=== PATIENT | female | born 1995 | race Caucasian/White ===

== ENCOUNTER 2018-08-20 00:39 | Emergency (ER) | payer OTHER ==
[2018-08-20 01:19] VITALS: TEMP 97.8; BMI 33.8
--- NOTE | 2018-08-20 02:37 | PDOC ---
History of Present Illness - General Chief Complaint: Pain Stated Complaint: PAIN LEFT INNER THIGH - 23 WKS Time Seen by Provider: 08/20/18 01:32 History Source: Patient Exam Limitations: No Limitations - History of Present Illness Initial Comments: 08/20/18 02:32 Patient is a 23F at 23 weeks here today complaining of pain to her right inner thigh that started three days ago. Patient cannot think of any inciting event or increased physical activity. Patient states that she called her PCP who recommended she go to the ED for a possible blood clot. Patient denies chest pain, shortness of breath, abdominal pain, vaginal bleeding/discharge. Denies fevers, chills, nausea and vomiting. Past History - Suicide/Smoking/Psychosocial Hx Smoking History: Never smoked Have you smoked in the past 12 months: No Information on smoking cessation initiated: No Hx Alcohol Use: No Drug/Substance Use Hx: No Review of Systems - Review of Systems Able to Perform ROS?: Yes Comments:: 08/20/18 02:34 GENERAL/CONSTITUTIONAL: No fever or chills. No weakness. HEAD, EYES, EARS, NOSE AND THROAT: No change in vision. No sore throat. CARDIOVASCULAR: No chest pain or shortness of breath RESPIRATORY: No cough, wheezing, or hemoptysis. GASTROINTESTINAL: No nausea, vomiting, diarrhea or constipation. GENITOURINARY: No dysuria, frequency, or change in urination. MUSCULOSKELETAL: +R inner thigh pain No neck or back pain. SKIN: No rash HEMATOLOGIC/LYMPHATIC: No anemia, easy bleeding, or history of blood clots. ALLERGIC/IMMUNOLOGIC: No hives or skin allergy. *Physical Exam - Vital Signs Last Vital Signs Temp Pulse Resp BP Pulse Ox 97.8 F 100 H 18 122/82 99 08/20/18 01:12 08/20/18 01:12 08/20/18 01:12 08/20/18 01:12 08/20/18 01:12 - Physical Exam Comments: 08/20/18 02:35 GENERAL: Awake, alert, and fully oriented, in no acute distress R LEG: No swelling, mildly tender along inner thigh, neurovascularly intact. HEAD: No signs of trauma, normocephalic, atraumatic EYES: PERRLA, EOMI, sclera anicteric, conjunctiva clear ENT: Auricles normal inspection, hearing grossly normal, nares patent, oropharynx clear without exudates. Moist mucosa NECK: Normal ROM, supple, no lymphadenopathy, JVD, or masses LUNGS: No distress, speaks full sentences, clear to auscultation bilaterally HEART: Regular rate and rhythm, normal S1 and S2, no murmurs, rubs or gallops, peripheral pulses normal and equal bilaterally. ABDOMEN: Gravid, nontender, normoactive bowel sounds. No guarding, no rebound. No masses EXTREMITIES: Normal inspection, Normal range of motion, no edema. No clubbing or cyanosis. NEUROLOGICAL: Cranial nerves II through XII grossly intact. Normal speech, normal gait, no focal sensorimotor deficits SKIN: Warm, Dry, normal turgor, no rashes or lesions noted. Moderate Sedation - Procedure Monitoring Vital Signs: Procedure Monitoring Vital Signs Temperature 97.8 F 08/20/18 01:12 Pulse Rate 100 H 08/20/18 01:12 Respiratory Rate 18 08/20/18 01:12 Blood Pressure 122/82 08/20/18 01:12 O2 Sat by Pulse Oximetry (%) 99 08/20/18 01:12 ED Treatment Course - RADIOLOGY Radiology Studies Ordered: Category Date Time Status DUPLEX VASCUL US-1 LEG [US] Stat Ultrasound 08/20/18 01:43 Taken Medical Decision Making - Medical Decision Making 08/20/18 02:36 Patient is 23F at 23 weeks here today with leg pain. Vitals normal and stable. Leg exam not consistent with DVT, but will rule out. Suspect MSK pain. No vaginal pain, discharge or abdominal pain. DVT US negative. Will discharge home. *DC/Admit/Observation/Transfer Diagnosis at time of Disposition: Leg pain - Discharge Dispostion Disposition: HOME Condition at time of disposition: Good Decision to Admit order: No - Referrals - Patient Instructions Printed Discharge Instructions: DI for Leg Pain Additional Instructions: Please follow up with your primary care physician this week. Please return if you have any new, worsening or concerning symptoms, especially fever, increasing pain and shortness of breath. - Post Discharge Activity
--- NOTE | 2018-08-20 02:44 | PDOC ---
Attending Attestation - Resident Resident Name: Rafael Kingston - ED Attending Attestation I have performed the following: I have examined & evaluated the patient, The case was reviewed & discussed with the resident, I agree w/resident's findings & plan, Exceptions are as noted - HPI HPI: 08/20/18 04:48 23F 23 wk preg with R thigh px for 3 days. Sent by PCP for eval concerned for clot. No other complaints. - Physicial Exam PE: 08/20/18 04:49 Agree with exam as documented by resident - Medical Decision Making 08/20/18 04:49 f/u US no dvt dc, f/u pcp, obgyn
[2018-08-20 04:10] VITALS: BP 107/74; PULSE 95
== END 2018-08-20 04:20 | disposition home or self-care (01) ==
LOC: JER 00:39
DX: O26.892 Other specified pregnancy related conditions, second trimester (principal); Z3A.23 23 weeks gestation of pregnancy; M79.604 Pain in right leg
CPT/HCPCS: 93971-TC; 99282-25

== ENCOUNTER 2018-12-08 14:05 | Inpatient (IN) | payer OTHER | END 2018-12-11 14:00 | disposition home or self-care (01) | LOC: JLDR 14:05 → J3W 19:55 ==

== ENCOUNTER 2019-03-13 20:01 | Emergency (ER) | payer OTHER ==
[2019-03-13 20:08] VITALS: BP 128/84; TEMP 98.2; BMI 33.8
--- NOTE | 2019-03-13 20:27 | PDOC ---
History of Present Illness - General Chief Complaint: Bleeding from Anus Stated Complaint: BLEEDING Time Seen by Provider: 03/13/19 20:27 History Source: Patient Exam Limitations: No Limitations - History of Present Illness Initial Comments: 23 year old female with no PMH presented to ED for rectal bleeding since yesterday, total of three episodes. Pt admitted to [facility] intermittent abdominal cramping pain, no alleviating or aggravating factors. Pt denied recent travel, nausea, vomiting, diarrhea, constipation. Pt reported she noted the blood to be on the stool, lying on top, denied blood mixed in stool. Pt admitted to rectal pain. Surgical history: x2 PCP: none Past History - Past Medical History Allergies/Adverse Reactions: Allergies Allergy/AdvReac Type Severity Reaction Status Date / Time No Known Allergies Allergy Verified 03/13/19 20:03 Home Medications: Ambulatory Orders Iron 1 tab PO DAILY 08/20/18 Pnv No.95/Ferrous Fum/Folic AC [ Vitamin Tablet] 1 tab PO DAILY Ibuprofen 600 mg PO Q6H PRN #30 tablet 12/09/18 Oxycodone HCl/Acetaminophen [Percocet 5-325 mg Tablet -] 1 - 2 tab PO Q6H PRN # 15 tab MDD 4 12/09/18 Anemia: Yes Asthma: No Cancer: No Cardiac Disorders: No COPD: No Diabetes: No HTN: No Seizures: No Thyroid Disease: No - Reproductive History Cervical CA: No Dysfunctional Uterine Bleeding: No Ectopic : No Endometrial CA: No Polycystic Ovaries: No Therapeutic (s) & number: No Tubal Ligation: No - Immunization History Immunization Up to Date: Yes - Suicide/Smoking/Psychosocial Hx Smoking History: Never smoked Have you smoked in the past 12 months: No Number of Cigarettes Smoked Daily: 0 Hx Alcohol Use: Yes Drug/Substance Use Hx: No Substance Use Type: None Hx Substance Use Treatment: No Review of Systems - Review of Systems Able to Perform ROS?: Yes Comments:: General: denied fever, chills, generalized weakness. HEENT: denied sore throat, rhinorrhea, ear pain. Cardiovascular: denied chest pain, palpitations, syncope, diaphoresis. Respiratory: denied shortness of breath, cough, sputum production, hemoptysis. Gastrointestinal: admitted to abdominal pain, rectal pain, rectal bleeding. denied nausea, vomiting, diarrhea, constipation, blood in stool. Genitourinary: denied dysuria, increased urinary frequency, hematuria, urinary incontinence, flank pain. Back: denied back pain. Musculoskeletal: denied joint pain, muscle pain, joint swelling. Neurological: denied headache, dizziness, numbness, tingling, weakness. Integumentary: denied rash, laceration, abrasion. Hematologic/Lymphatic: denied bruising or bleeding. *Physical Exam - Vital Signs Last Vital Signs Temp Pulse Resp BP Pulse Ox 98.2 F 104 H 18 128/84 100 03/13/19 20:04 03/13/19 20:04 03/13/19 20:04 03/13/19 20:04 03/13/19 20:04 - Physical Exam Comments: Constitutional: Well-nourished, Well-developed, appearing stated age. HEENT: head is normocephalic, atraumatic. EOMI. PERRLA. no posterior pharyngeal erythema.no tonsillar swelling or exudates bilaterally. uvula midline. no peritonsillar swelling, tenderness or abscess. no jaw tenderness or misalignment. Neck: supple. Full ROM. Cardiovascular: regular heart rhythm. no murmurs. no pericardial friction rub. Respiratory: clear to auscultation bilaterally. no crackles, rhonchi or wheezing. no stridor. Gastrointestinal: soft, nontender. normal bowel sounds. no rebound, guarding, masses. Extremities: peripheral pulses intact. no lower extremity edema. Neurological: CN 2-12 grossly intact. moves all four extremities. Psych: awake, alert, oriented x3. follows commands. answers questions appropriately. Rectal: no external hemorrhoids. soft stool in rectal vault. pink-tinged stool to glove. ED Treatment Course - LABORATORY CBC & Chemistry Diagram: 03/13/19 20:35 03/13/19 20:35 Medical Decision Making - Medical Decision Making 23 year old female with above PMH presented to ED for rectal bleeding since last night, total of 3 episodes of blood lying on top of stool, associated with intermittent RLQ abdominal pain. Initial Vital Signs Temp Pulse Resp BP Pulse Ox 98.2 F 104 H 18 128/84 100 03/13/19 20:04 03/13/19 20:04 03/13/19 20:04 03/13/19 20:04 03/13/19 20:04 Afebrile. Mild tachycardia. No tachypnea. No hypotension. No hypoxia on room air. Labs ordered: CBC, CMP, lipase, serum , stool for blood Imaging ordered: none Medications ordered: tylenol 975 mg PO once, normal saline 1000 cc once 03/13/19 21:07 CBC WBC 8.4 K/mm3 (4.0-10.0) 03/13/19 20:35 RBC 4.47 M/mm3 (3.60-5.2) 03/13/19 20:35 Hgb 12.3 GM/dL (10.7-15.3) 03/13/19 20:35 Hct 37.5 % (32.4-45.2) D 03/13/19 20:35 MCV 84.0 fl (80-96) 03/13/19 20:35 MCH 27.5 pg (25.7-33.7) D 03/13/19 20:35 MCHC 32.7 g/dl (32.0-36.0) 03/13/19 20:35 RDW 16.6 % (11.6-15.6) H 03/13/19 20:35 Plt Count 293 K/MM3 (134-434) D 03/13/19 20:35 MPV 9.1 fl (7.5-11.1) 03/13/19 20:35 Absolute Neuts (auto) 4.9 K/mm3 (1.5-8.0) 03/13/19 20:35 Neutrophils % 58.6 % (42.8-82.8) 03/13/19 20:35 Lymphocytes % 32.2 % (8-40) 03/13/19 20:35 Monocytes % 4.9 % (3.8-10.2) 03/13/19 20:35 Eosinophils % 3.5 % (0-4.5) 03/13/19 20:35 Basophils % 0.8 % (0-2.0) 03/13/19 20:35 Nucleated RBC % 0 % (0-0) 03/13/19 20:35 No leukocytosis. No anemia. No thrombocytosis. 03/13/19 21:17 Urine Test Results Urine Color Yellow 03/13/19 21:02 Urine Appearance Clear 03/13/19 21:02 Urine pH 6.5 (5.0-8.0) D 03/13/19 21:02 Ur Specific [place] 1.023 (1.010-1.035) 03/13/19 21:02 Urine Protein Negative (NEGATIVE) 03/13/19 21:02 Urine Glucose (UA) Negative (NEGATIVE) 03/13/19 21:02 Urine Ketones Negative (NEGATIVE) 03/13/19 21:02 Urine Blood Negative (NEGATIVE) 03/13/19 21:02 Urine Nitrite Negative (NEGATIVE) 03/13/19 21:02 Urine Bilirubin Negative (NEGATIVE) 03/13/19 21:02 Ur Leukocyte Esterase Negative (NEGATIVE) 03/13/19 21:02 Negative for UTI. Negative for hematuria. Stool positive for blood. 03/13/19 21:22 CMP Sodium 139 mmol/L (136-145) 03/13/19 20:35 Potassium 3.8 mmol/L (3.5-5.1) 03/13/19 20:35 Chloride 107 mmol/L (98-107) 03/13/19 20:35 Carbon Dioxide 26 mmol/L (21-32) 03/13/19 20:35 Anion Gap 6 MMOL/L (8-16) L 03/13/19 20:35 BUN 9.0 mg/dL (7-18) 03/13/19 20:35 Creatinine 0.6 mg/dL (0.55-1.3) 03/13/19 20:35 Est GFR (CKD-EPI)AfAm 149.95 03/13/19 20:35 Est GFR (CKD-EPI)NonAf 129.38 03/13/19 20:35 Random Glucose 103 mg/dL (74-106) 03/13/19 20:35 Calcium 9.1 mg/dL (8.5-10.1) 03/13/19 20:35 Total Bilirubin 0.2 mg/dL (0.2-1) 03/13/19 20:35 AST 16 U/L (15-37) 03/13/19 20:35 ALT 30 U/L (13-61) 03/13/19 20:35 Alkaline Phosphatase 114 U/L (45-117) 03/13/19 20:35 Total Protein 7.6 g/dl (6.4-8.2) 03/13/19 20:35 Albumin 4.0 g/dl (3.4-5.0) 03/13/19 20:35 Lipase 109 U/L (73-393) 03/13/19 20:35 Serum , Qual Negative 03/13/19 20:35 No electrolyte abnormalities. No RUSTAM. No transaminitis. Lipase wnl Serum testing negative 03/13/19 21:33 Results discussed with patient. Pt advised to F/U in [facility] clinic, call back placed for pt to be given appt, pt given information sheet. Pt advised to seek GI F/U for colonoscopy evaluation. Pt has no insurance, pt advised to go through [facility] clinic. Pt discharged. *DC/Admit/Observation/Transfer Diagnosis at time of Disposition: Rectal bleeding - Discharge Dispostion Disposition: HOME Condition at time of disposition: Stable Decision to Admit order: No - Referrals Referrals: [facility] [place] [Provider Group] - Patient Instructions Printed Discharge Instructions: DI for Abdominal Pain-Adult, DI for Rectal Bleeding Additional Instructions: You were seen today for rectal bleeding. Your lab work was normal. Your urine analysis was normal. Follow up with a primary care doctor within 3 days. I have provided you with a referral to our clinic system. They should call you tomorrow to make an appointment. Call tomorrow mid-day if you have not received a call and ask for the soonest appointment. Your care is not complete until you follow up. Bring all paperwork given to you today to your appointment. Bring all medications you have been taking. You may need an outpatient colonoscopy, follow up with a remote control assembler within 5 days. The clinic system can assist you with an appointment if you do not have insurance. Take tylenol over the counter for pain, take as advised on label. Return to the Emergency Department for increasing bleeding, chest pain, shortness of breath, increasing pain despite Tylenol use, lightheadedness, vomiting, or any other new, worsening or concerning symptoms. - Post Discharge Activity Forms/Work/School Notes: Back to Work
[2019-03-13] MEDS ORDERED: ACETAMINOPHEN 325 MG TABLET (FP) PO ONE (20:30)
[2019-03-13] MEDS ORDERED: SODIUM CHLORIDE 1,000 ML IV STA (20:31)
[2019-03-13 20:57] LABS: BASO % 0.8 % (0-2.0); EOS % 3.5 % (0-4.5); HEMATOCRIT 37.5 % (32.4-45.2); HEMOGLOBIN 12.3 GM/dL (10.7-15.3); LYMPH % 32.2 % (8-40); MCH 27.5 pg (25.7-33.7); MCHC 32.7 g/dl (32.0-36.0); MEAN PLT VOLUME 9.1 fl (7.5-11.1); MONO % 4.9 % (3.8-10.2); NEUT % 58.6 % (42.8-82.8); PLATELET COUNT 293 K/MM3 (134-434); RBC 4.47 M/mm3 (3.60-5.2); RDW 16.6 % (11.6-15.6); WHITE BLOOD COUNT 8.4 K/mm3 (4.0-10.0)
[2019-03-13 21:10] LABS: INR 0.95 (0.83-1.09); PROTHROMBIN TIME (PATIENT) 11.2 SEC (9.7-13.0)
[2019-03-13 21:15] LABS: PH,URINE 6.5 (5.0-8.0); URINE APPEARANCE CLEAR; URINE BILIRUBIN NEGATIVE (NEGATIVE); URINE COLOR YELLOW; URINE GLUCOSE (UA) NEGATIVE (NEGATIVE); URINE KETONE NEGATIVE (NEGATIVE); URINE LEUK ESTERASE NEGATIVE (NEGATIVE); URINE NITRITE NEGATIVE (NEGATIVE); URINE PROTEIN NEGATIVE (NEGATIVE); URINE UROBILINOGEN 0.2 mg/dL (0.2-1.0)
[2019-03-13 21:21] LABS: BILIRUBIN,TOTAL 0.2 mg/dL (0.2-1); CALCIUM 9.1 mg/dL (8.5-10.1); CREATININE 0.6 mg/dL (0.55-1.3); POTASSIUM 3.8 mmol/L (3.5-5.1); TOT PROT 7.6 g/dl (6.4-8.2)
[2019-03-13] MEDS ORDERED: ACETAMINOPHEN 325 MG TABLET (FP) ONE (21:25)
--- NOTE | 2019-03-13 21:36 | PDOC ---
Documentation entered by Damian Ferreira SCRIBE, acting as scribe for Sulma Hall MD. Sulma Hall MD: This documentation has been prepared by the Jhon wu Daniel, SCRIBE, under my direction and personally reviewed by me in its entirety. I confirm that the documentation accurately reflects all work, treatment, procedures, and medical decision making performed by me. Attending Attestation - Resident Resident Name: Danielle Mobley - ED Attending Attestation I have performed the following: I have examined & evaluated the patient, The case was reviewed & discussed with the resident, I agree w/resident's findings & plan, Exceptions are as noted - HPI HPI: 03/13/19 21:29 The patient is a 23 year old female with no past medical history here today for evaluation of rectal bleeding. The patient reports that she noticed 3 episodes of bright red blood spotting in her stool (1 episode last night, 2 episodes today) and notes some right lower cramping. Patient nausea, vomiting, diarrhea. Allergies: NKA Surgical history: 2 C-sections PCP: none - Physicial Exam PE: 03/13/19 21:29 GENERAL: Well-appearing, well-nourished. No apparent distress. HEENT: Normocephalic, atraumatic. PERRL, EOM intact. CARDIOVASCULAR: Normal S1, S2. Regular rate and rhythm. PULMONARY: Clear to auscultation bilaterally. ABDOMEN: +mild right inguinal tenderness. Soft, non-distended. RECTAL: defer to Dr. Mobley's exam. EXTREMITIES: Normal ROM in all four extremities. No gross deformities. SKIN: Warm, dry. No rash NEUROLOGICAL: No focal neurological deficits. - Medical Decision Making 03/13/19 21:32 imp rectal bleeding w defecation , possibly internal hemorrhoids , no external hemorrhoids seen. Symptoms just started last night. denies fever,tenemus, diarrhea labs reviewed, no anemia hemoccult trace positive plan ; Referred to our [facility] group and GI referral for colonscopy and further w/u
[2019-03-13 21:58] VITALS: PULSE 90
== END 2019-03-13 21:58 | disposition home or self-care (01) ==
LOC: JER 20:01
PROC: 3E0337Z Introduction of Electrolytic and Water Balance Substance into Peripheral Vein, Percutaneous Approach (ICD-10-PCS; principal; 2019-03-13)
DX: K62.5 Hemorrhage of anus and rectum (principal)
CPT/HCPCS: 36415; 80053; 81003; 82272; 83690; 84703; 85025; 85610; 87086; 96360; 99283-25; J7030

== ENCOUNTER 2020-08-08 02:29 | Emergency (ER) | payer OTHER ==
[2020-08-08 03:20] VITALS: TEMP 99.1; BMI 36.6
[2020-08-08 03:47] LABS: BASO % 0.6 % (0-2.0); EOS % 3.3 % (0-4.5); HEMATOCRIT 37.7 % (32.4-45.2); HEMOGLOBIN 12.3 GM/dL (10.7-15.3); LYMPH % 26.9 % (8-40); MCH 27.3 pg (25.7-33.7); MCHC 32.6 g/dl (32.0-36.0); MEAN CELL VOLUME 83.7 fl (80-96); MEAN PLT VOLUME 9.9 fl (7.5-11.1); MONO % 6.8 % (3.8-10.2); NEUT % 62.4 % (42.8-82.8); PLATELET COUNT 269 K/MM3 (134-434); RBC 4.51 M/mm3 (3.60-5.2); RDW 14.9 % (11.6-15.6); WHITE BLOOD COUNT 8.6 K/mm3 (4.0-10.0)
[2020-08-08 04:11] LABS: CHLORIDE 106 mmol/L (98-107); POTASSIUM 3.9 mmol/L (3.5-5.1); SODIUM 139 mmol/L (136-145)
[2020-08-08 04:13] LABS: CALCIUM 9.4 mg/dL (8.5-10.1)
[2020-08-08 04:14] LABS: ANION GAP 8 MMOL/L (8-16); BLOOD UREA NITROGEN 6.7 mg/dL (7-18); CO2 25 mmol/L (21-32); GLUCOSE,RANDOM 105 mg/dL (74-106)
[2020-08-08 04:17] LABS: CREATININE 0.6 mg/dL (0.55-1.3); SGOT/AST 56 U/L (15-37); SGPT/ALT 69 U/L (13-61)
[2020-08-08 04:18] LABS: BILIRUBIN,TOTAL 0.2 mg/dL (0.2-1); TOT PROT 7.8 g/dl (6.4-8.2)
[2020-08-08 04:19] LABS: ALK PHOS 116 U/L (45-117)
[2020-08-08] MEDS ORDERED: KETOROLAC TROMETHAMINE 15 MG/ML VIAL IVPUSH ONE (06:00)
[2020-08-08 06:06] VITALS: BP 110/74; PULSE 76
[2020-08-08] MEDS ORDERED: KETOROLAC TROMETHAMINE 15 MG/ML VIAL ONE (06:07)
== END 2020-08-08 06:51 | disposition home or self-care (01) ==
LOC: JER 02:29
PROC: 3E0333Z Introduction of Anti-inflammatory into Peripheral Vein, Percutaneous Approach (ICD-10-PCS; principal; 2020-08-08)
DX: R06.00 Dyspnea, unspecified (principal)
CPT/HCPCS: 36415; 71046-TC-FY; 80053; 82550; 84484; 85025; 85379; 93005; 93010; 99285-25

== ENCOUNTER 2023-02-20 09:10 | Inpatient (IN) | payer OTHER ==
[2023-02-20] MEDS: ELECTROLYTE-148 SOLN 1,000 ML IV SCH ×2 (09:50→11:00)
[2023-02-20] MEDS ORDERED: CITRIC ACID/SODIUM CITRATE 30 ML UNIT-DOSE CUP PO ONE (10:02)
[2023-02-20 10:17] VITALS: BMI 35.7
[2023-02-20] MEDS ORDERED: FENTANYL CITRATE/PF 50 MCG/ML VIAL ONE (10:50)
[2023-02-20] MEDS ORDERED: morphine SULFATE/PF 1 MG/2 ML (2cc Syringe - QUVA) ONE (10:50)
[2023-02-20] MEDS ORDERED: ePHEDrine SULFATE 50 MG/1 ML AMPULE ONE (11:23)
[2023-02-20] MEDS ORDERED: METHYLERGONOVINE MALEATE 0.2 MG/1 ML AMP IM PRN (11:54)
[2023-02-20] MEDS: OXYTOCIN 20 UNITS in 0.9% NS 20 UNIT/1,000 ML INFUS.BAG IV SCH ×2 (12:25→20:35)
[2023-02-20] MEDS: IBUPROFEN 600 MG TABLET (FP) PO PRN (16:13)
[2023-02-20] MEDS: SIMETHICONE 80 MG TAB.CHEW (FP) PO PRN (16:13)
[2023-02-20] MEDS: IBUPROFEN 800 MG/8 ML IJ IVPB PRN (20:35)
[2023-02-20] MEDS: FERROUS SO4 325 MG TABLET (FP) PO SCH (22:05)
[2023-02-20] MEDS ORDERED: oxyCODONE HCL 5 MG TABLET PO PRN (23:54)
[2023-02-21] MEDS: IBUPROFEN 800 MG/8 ML IJ IVPB PRN (04:41)
[2023-02-21 08:28] LABS: BASO % 0.8 % (0-2.0); EOS % 0.7 % (0-4.5); HEMATOCRIT 25.5 % (32.4-45.2); LYMPH % 22.7 % (8-40); MCH 21.2 pg (25.7-33.7); MCHC 31.3 g/dl (32.0-36.0); MEAN CELL VOLUME 67.8 fl (80-96); MEAN PLT VOLUME 10.1 fl (7.5-11.1); MONO % 7.4 % (3.8-10.2); NEUT % 68.4 % (42.8-82.8); PLATELET COUNT 219 10^3/uL (134-434); RBC 3.76 M/mm3 (3.60-5.2); WHITE BLOOD COUNT 10.3 K/mm3 (4.0-10.0)
[2023-02-21] MEDS: SIMETHICONE 80 MG TAB.CHEW (FP) PO PRN ×2 (09:44→21:01)
[2023-02-21] MEDS: FERROUS SO4 325 MG TABLET (FP) PO SCH ×2 (09:44→21:01)
[2023-02-21] MEDS: PRENATAL VITAMINS W/ FOLIC ACID TABLET (FP) PO SCH (09:44)
[2023-02-21] MEDS ORDERED: DIPHTH,PERTUSS(ACELL),TET 0.5 ML DISP.SYRIN IM ONE (10:00)
[2023-02-21] MEDS ORDERED: BISACODYL 10 MG SUPP.RECT RC PRN (11:54)
[2023-02-21] MEDS: IBUPROFEN 600 MG TABLET (FP) PO PRN ×2 (13:56→21:02)
[2023-02-21] MEDS: SENNOSIDES/DOCUSATE COMBO (SENNA PLUS) TABLET (UD) PO PRN (21:02)
[2023-02-22] MEDS: IBUPROFEN 600 MG TABLET (FP) PO PRN ×2 (06:16→20:25)
[2023-02-22] MEDS: ACETAMINOPHEN 325 MG TABLET (FP) PO PRN ×2 (09:04→13:17)
[2023-02-22] MEDS: PRENATAL VITAMINS W/ FOLIC ACID TABLET (FP) PO SCH (09:04)
[2023-02-22] MEDS: FERROUS SO4 325 MG TABLET (FP) PO SCH ×2 (09:04→23:20)
[2023-02-22] MEDS: SENNOSIDES/DOCUSATE COMBO (SENNA PLUS) TABLET (UD) PO PRN (20:25)
[2023-02-23 08:37] LABS: BASO % 0.8 % (0-2.0); EOS % 2.4 % (0-4.5); HEMATOCRIT 26.1 % (32.4-45.2); HEMOGLOBIN 8.3 GM/dL (10.7-15.3); LYMPH % 24.1 % (8-40); MCH 21.5 pg (25.7-33.7); MCHC 31.7 g/dl (32.0-36.0); MEAN CELL VOLUME 68.1 fl (80-96); MEAN PLT VOLUME 9.5 fl (7.5-11.1); NEUT % 66.7 % (42.8-82.8); PLATELET COUNT 262 10^3/uL (134-434); RBC 3.83 M/mm3 (3.60-5.2); WHITE BLOOD COUNT 8.2 K/mm3 (4.0-10.0)
[2023-02-23] MEDS: FERROUS SO4 325 MG TABLET (FP) PO SCH (09:08)
[2023-02-23] MEDS: PRENATAL VITAMINS W/ FOLIC ACID TABLET (FP) PO SCH (09:09)
[2023-02-23] MEDS: IBUPROFEN 600 MG TABLET (FP) PO PRN (09:09)
[2023-02-23 09:25] LABS: ANISOCYTOSIS 3+; MACROCYTOSIS 1+; OVALOCYTE 1+
[2023-02-23 10:53] VITALS: BP 109/47; PULSE 96; RESP 16; TEMP 98.7
== END 2023-02-23 14:15 | disposition home or self-care (01) | DRG 540 ==
LOC: JLDR 09:10 → J3W 13:36
PROVIDERS: ADMIT Obstetrics & Gynecology; ATTEND Obstetrics & Gynecology
PROC: 10D00Z1 Extraction of Products of Conception, Low, Open Approach (ICD-10-PCS; principal; 2023-02-20)
PROC: 0UL70ZZ Occlusion of Bilateral Fallopian Tubes, Open Approach (ICD-10-PCS; 2023-02-20)
DX: O34.211 Maternal care for low transverse scar from previous cesarean delivery (principal); O69.81X0 Labor and delivery complicated by cord around neck, without compression, not applicable or unspecified; Z3A.39 39 weeks gestation of pregnancy; Z37.0 Single live birth; Z30.2 Encounter for sterilization
CPT/HCPCS: 36415; 80053; 85025; 85610; 86780; 86850; 86900; 86901; 88302-TC; 88307-TC; 90715; 94010

== ENCOUNTER 2023-03-19 19:43 | Inpatient (IN) | payer OTHER ==
[2023-03-19 19:53] VITALS: BMI 32.5
[2023-03-19] MEDS ORDERED: SODIUM CHLORIDE 0.9% 500 ML INFUS.BAG IV ONE (21:22)
[2023-03-19] MEDS ORDERED: ACETAMINOPHEN 1000 MG/100 ML BAG IVPB ONE (21:22)
[2023-03-19] MEDS ORDERED: ONDANSETRON 4 MG/2 ML VIAL IVPB ONE (21:22)
[2023-03-19] MEDS ORDERED: FAMOTIDINE 20 MG/50 ML IVPB 20 MG/50 ML MG IVPB ONE ×2 (21:23→21:33)
[2023-03-19] MEDS ORDERED: ACETAMINOPHEN INJECTION 100 ML IVPB ONE (21:32)
[2023-03-19] MEDS ORDERED: ONDANSETRON 4 MG/2 ML VIAL ONE (21:33)
[2023-03-19 21:55] LABS: BASO % 0.6 % (0-2.0); EOS % 0.5 % (0-4.5); HEMATOCRIT 34.8 % (32.4-45.2); HEMOGLOBIN 10.6 GM/dL (10.7-15.3); MCH 22.5 pg (25.7-33.7); MCHC 30.5 g/dl (32.0-36.0); MEAN CELL VOLUME 73.6 fl (80-96); MEAN PLT VOLUME 10.2 fl (7.5-11.1); MONO % 3.8 % (3.8-10.2); NEUT % 87.1 % (42.8-82.8); PLATELET COUNT 236 10^3/uL (134-434); RBC 4.73 M/mm3 (3.60-5.2); RDW 23.8 % (11.6-15.6)
[2023-03-19 22:21] LABS: POTASSIUM 3.7 mmol/L (3.5-5.1)
[2023-03-19 22:24] LABS: ALBUMIN 3.8 g/dl (3.4-5.0); BLOOD UREA NITROGEN 10.4 mg/dL (7-18); CALCIUM 8.8 mg/dL (8.5-10.1); MAGNESIUM 2.3 mg/dL (1.8-2.4)
[2023-03-19 22:27] LABS: CREATININE 0.8 mg/dL (0.55-1.3); PHOSPHOROUS 4.2 mg/dL (2.5-4.9)
[2023-03-19 22:29] LABS: BILIRUBIN,TOTAL 0.9 mg/dL (0.2-1); TOT PROT 7.7 g/dl (6.4-8.2)
[2023-03-19 22:44] LABS: ANISOCYTOSIS 3+; MACROCYTOSIS 1+; OVALOCYTE 1+
[2023-03-19 23:25] LABS: EPI CELLS 7 /uL (0-25.1); HYALINE CASTS 0 /uL (0-3.1); URINE APPEARANCE CLEAR; URINE BACTERIA 16 /uL (0-1359); URINE BILIRUBIN NEGATIVE (NEGATIVE); URINE COLOR DK YELLOW; URINE GLUCOSE (UA) NEGATIVE (NEGATIVE); URINE KETONE 2+ (NEGATIVE); URINE LEUK ESTERASE NEGATIVE (NEGATIVE); URINE NITRITE NEGATIVE (NEGATIVE); URINE PROTEIN NEGATIVE (NEGATIVE); URINE RBC 34 /uL (0-23.9); URINE UROBILINOGEN 0.2 mg/dL (0.2-1.0); URINE WBC 33 /uL (0-25.8)
[2023-03-19 23:44] LABS: HCG,QUALITATIVE URINE Negative
[2023-03-20] MEDS ORDERED: IBUPROFEN 600 MG TABLET (FP) PO PRN ×2 (03:11→05:49)
[2023-03-20 06:02] VITALS: RESP 18
[2023-03-20 09:14] LABS: BASO % 0.8 % (0-2.0); HEMATOCRIT 32.6 % (32.4-45.2); HEMOGLOBIN 9.9 GM/dL (10.7-15.3); LYMPH % 26.7 % (8-40); MCH 22.5 pg (25.7-33.7); MCHC 30.3 g/dl (32.0-36.0); MEAN CELL VOLUME 74.3 fl (80-96); MEAN PLT VOLUME 10.5 fl (7.5-11.1); MONO % 8.5 % (3.8-10.2); PLATELET COUNT 209 10^3/uL (134-434); RBC 4.38 M/mm3 (3.60-5.2); RDW 24.1 % (11.6-15.6); WHITE BLOOD COUNT 7.4 K/mm3 (4.0-10.0)
[2023-03-20 09:32] LABS: POTASSIUM 3.7 mmol/L (3.5-5.1)
[2023-03-20 09:37] LABS: CALCIUM 8.4 mg/dL (8.5-10.1)
[2023-03-20 09:38] LABS: ALBUMIN 3.2 g/dl (3.4-5.0); MAGNESIUM 2.2 mg/dL (1.8-2.4)
[2023-03-20 09:39] LABS: PHOSPHOROUS 4.4 mg/dL (2.5-4.9)
[2023-03-20 09:40] LABS: BILIRUBIN,TOTAL 0.7 mg/dL (0.2-1); TOT PROT 6.6 g/dl (6.4-8.2)
[2023-03-20 09:41] LABS: CREATININE 0.7 mg/dL (0.55-1.3)
[2023-03-20] MEDS ORDERED: ENOXAPARIN NA (PORCINE) 40 MG/0.4 ML DISP.SYRIN SQ SCH (10:00)
[2023-03-20] MEDS: FERROUS SO4 325 MG TABLET (FP) PO SCH (10:40)
[2023-03-20] MEDS: LACTATED RINGERS SOLUTION 1,000 ML/1,000 ML INFUS.BAG IV SCH ×2 (11:02→22:52)
[2023-03-20] MEDS: PIPERACILLIN/TAZOB 3.375 GM 3.375 GM in DEXTROSE 5%-WATER - 50 ML IVPB SCH ×2 (11:03→18:08)
[2023-03-20] MEDS: ACETAMINOPHEN 1000 MG/100 ML BAG IVPB PRN ×2 (15:39→21:37)
[2023-03-20] MEDS ORDERED: PIPERACILLIN/TAZOB 3.375 GM 3.375 GM in DEXTROSE 5%-WATER - 50 ML IVPB SCH (18:00)
[2023-03-21] MEDS: PIPERACILLIN/TAZOB 3.375 GM 3.375 GM in DEXTROSE 5%-WATER - 50 ML IVPB SCH ×2 (01:27→10:47)
[2023-03-21] MEDS: ONDANSETRON 4 MG/2 ML VIAL IVPUSH PRN ×2 (03:36→11:30)
[2023-03-21] MEDS: LACTATED RINGERS SOLUTION 1,000 ML/1,000 ML INFUS.BAG IV SCH ×2 (07:39→09:00)
[2023-03-21 09:51] LABS: HEMATOCRIT 30.6 % (32.4-45.2); HEMOGLOBIN 9.3 GM/dL (10.7-15.3); MCH 22.6 pg (25.7-33.7); MCHC 30.5 g/dl (32.0-36.0); MEAN CELL VOLUME 74.1 fl (80-96); MEAN PLT VOLUME 10.2 fl (7.5-11.1); PLATELET COUNT 206 10^3/uL (134-434); RBC 4.13 M/mm3 (3.60-5.2); RDW 23.7 % (11.6-15.6); WHITE BLOOD COUNT 6.2 K/mm3 (4.0-10.0)
[2023-03-21 10:06] LABS: POTASSIUM 3.6 mmol/L (3.5-5.1)
[2023-03-21 10:14] LABS: CALCIUM 8.3 mg/dL (8.5-10.1)
[2023-03-21 10:15] LABS: BLOOD UREA NITROGEN 7.4 mg/dL (7-18)
[2023-03-21 10:18] LABS: CREATININE 0.6 mg/dL (0.55-1.3)
[2023-03-21 10:19] LABS: TOT PROT 6.2 g/dl (6.4-8.2)
[2023-03-21] MEDS: FERROUS SO4 325 MG TABLET (FP) PO SCH (10:45)
[2023-03-21] MEDS: ACETAMINOPHEN 1000 MG/100 ML BAG IVPB PRN (11:42)
[2023-03-21] MEDS ORDERED: PIPERACILLIN/TAZOB 3.375 GM 3.375 GM in DEXTROSE 5%-WATER - 50 ML IVPB SCH (15:00)
[2023-03-21 17:47] VITALS: BP 103/63; PULSE 52; TEMP 98.1
== END 2023-03-21 18:28 | disposition short-term general hospital (02) | DRG 561 ==
LOC: JER 19:43 → JERBED 03-20 00:27 → J5S 03-20 04:16
PROVIDERS: ADMIT Internal Medicine
DX: O99.63 Diseases of the digestive system complicating the puerperium (principal); K80.42 Calculus of bile duct with acute cholecystitis without obstruction; E66.9 Obesity, unspecified; Z68.32 Body mass index [BMI] 32.0-32.9, adult; K86.9 Disease of pancreas, unspecified
CPT/HCPCS: 36415; 74177-TC; 74183-TC; 76705-TC; 80053; 81003; 83690; 83735; 84100; 84703; 85025; 85027; 87086; 87635; 93005; 93010; 99285-25; Q9967